=== PATIENT | female | born 1985 | race Caucasian/White ===

== ENCOUNTER 2016-07-14 05:35 | Inpatient (IN) | payer OTHER ==
--- NOTE | 2016-07-09 10:40 | CONS ---
DATE OF ADMISSION: 07/14/2016 DATE OF CONSULTATION: PREOP EVAL Dear Dr. Li: Thank you very much for allowing me to evaluate this 30-year-old female who is to undergo low back s urgery on 07/14. HISTORICAL EVENTS: As you well know, it was in mid November of 2015 that while lifting some luggage at [employer], "jerked her back" and subsequent to this had low back pain and radicular leg pain, right more th an left. Because of conservative therapy that did not allow improvement including epidural and phys ical therapy, she elected to proceed with surgery. Today, she denies cough, wheezing, shortness of breath, nausea, vomiting, abdominal or chest pain. She did have a history of 2 urinary tract infect ions in November, but this has not recurred and is presently asymptomatic. MEDICATIONS: Include: 1. [place] 325/10 every 6 hours p.r.n. 2. Ibuprofen 600 mg every 6 hours p.r.n. PAST MEDICAL HISTORY: Includes: 1. Appendectomy. 2. History of borderline diabetes. ALLERGIES: NONE. FAMILY HISTORY: Positive for diabetes and elevated cholesterol. 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 PHYSICAL EXAMINATION: GENERAL: [place] female in no acute distress. VITAL SIGNS: BP 122/72, respirations were 18, heart rate 72. EYES: Extraocular muscles were full. NOSE, MOUTH, AND THROAT: Normal. NECK: Supple. There was no jugular venous distention, thyroid enlargement or adenopathy. Carotids 2+, no bruits. LUNGS: Clear. HEART: Rhythm was regular, no murmur. No 3rd or 4th sound. ABDOMEN: Nontender. Liver and spleen were not palpable. No masses or tenderness were noted. EXTREMITIES: No edema. Calves nontender. Pulses 2+. IMPRESSION: Pending labs, I perceive no problems with your planned surgical intervention. Labs karen l be reviewed preop and I will follow post. Dictated By: NICHO ROACH MD MR/NTS Conf#: [id number] DID#: [id number]
[~2016-07-14] VITALS: Ht 160 cm; Wt 70.0 kg
[2016-07-14] VITALS (23 sets, daily range): BP systolic 94–117; BP diastolic 55–73; PULSE 60–83; RESP 10–24; Ht 160 cm; Wt 70.0 kg
[~2016-07-14 05:35] MED LIST: CYCL-319 PO
[2016-07-14] MEDS ORDERED: BUPIVACAINE 0.25%/EPI (SDV) 30 ML INJ ONE (06:55)
[2016-07-14] MEDS ORDERED: SURGIFOAM POWDER 1 GM KIT ONE (06:55)
[2016-07-14] MEDS ORDERED: GELATIN SIZE 100 SPONGE ONE (06:55)
[2016-07-14] MEDS ORDERED: THROMBIN 5000 UNIT VIAL ONE (06:56)
[2016-07-14] MEDS ORDERED: CA CHLORIDE 10% 10 ML SYRINGE ONE (06:56)
[2016-07-14] MEDS ORDERED: ONDANSETRON 4 MG INJ IV PRN ×2 (07:00→08:30)
[2016-07-14] MEDS ORDERED: AL HYDROX/MG HYDROX/SIMETH 30 ML CUP PO PRN (07:00)
[2016-07-14] MEDS ORDERED: LACTATED RINGER'S 1,000 ML IV* SCH (07:00)
[2016-07-14] MEDS ORDERED: DIPHENHYDRAMINE 50 MG INJ IV PRN (07:00)
[2016-07-14] MEDS ORDERED: DIPHENHYDRAMINE 25 MG CAP PO PRN (07:00)
[2016-07-14] MEDS ORDERED: HYDROCODONE/APAP (10/325) TAB PO PRN (07:00)
[2016-07-14] MEDS: CEFAZOLIN 1 GM/50 ML (PMX) 50 ML IVPB SCH ×3 (07:00→22:34)
[2016-07-14] MEDS ORDERED: CEFAZOLIN 2 GM/50 ML (PMX) 50 ML IVPB SCH (07:00)
[2016-07-14] MEDS ORDERED: HYDROmorphONE 1 MG/ML SYG IV PRN (07:00)
[2016-07-14] MEDS ORDERED: ACETAMINOPHEN 325 MG TAB PO PRN (07:00)
[2016-07-14] MEDS ORDERED: BISACODYL 10 MG SUPP PR PRN (07:00)
[2016-07-14] MEDS ORDERED: NALOXONE (0.4 MG/ML) INJ IV PRN (07:00)
[2016-07-14] MEDS ORDERED: PROPOFOL 200 MG INJ ONE (07:00)
[2016-07-14] MEDS ORDERED: MIDAZOLAM 1 MG/ML 2 ML INJ ONE (07:01)
[2016-07-14] MEDS ORDERED: PROPOFOL 20 ML ONE (07:01)
[2016-07-14] MEDS ORDERED: ROCURONIUM 50 MG INJ ONE (07:01)
[2016-07-14] MEDS ORDERED: POLYMYXIN/BACITRACIN 1L IRRIG ONE (07:01)
[2016-07-14] MEDS ORDERED: SUCCINYLCHOLINE CHLORIDE 100 MG/5 ML SYG IV ONE (07:01)
[2016-07-14] MEDS ORDERED: CEFAZOLIN 1 GM INJ ONE (07:11)
[2016-07-14] MEDS ORDERED: PHENYLephrine (100 MCG/ML) 5ML SYG ONE (07:30)
[2016-07-14] MEDS ORDERED: DEXAMETHASONE 4 MG/ML 1 ML INJ ONE (08:05)
[2016-07-14] MEDS ORDERED: FAMOTIDINE 20 MG INJ ONE (08:05)
[2016-07-14] MEDS ORDERED: ONDANSETRON 4 MG INJ ONE (08:05)
[2016-07-14] MEDS ORDERED: GLYCOPYRROLATE 1 MG INJ ONE (08:18)
[2016-07-14] MEDS ORDERED: NEOSTIGMINE 3 MG/3 ML SYRINGE ONE (08:18)
[2016-07-14] MEDS ORDERED: FENTAnyl 50 MCG/ML VIAL ONE (08:20)
[2016-07-14] MEDS ORDERED: HYDROmorphONE (0.2 MG/ML) 10ML SYG IV PRN ×3 (08:30)
[2016-07-14] MEDS ORDERED: MEPERIDINE 25 MG INJ IV PRN (08:30)
[2016-07-14] MEDS ORDERED: HYDR-902 PO (08:42)
[2016-07-14] MEDS ORDERED: EPHEDrine SULFATE 50 MG/5 ML SYG ONE (08:45)
[2016-07-14] MEDS: DOCUSATE SODIUM 100 MG CAP PO SCH ×2 (09:00→20:11)
[2016-07-14] MEDS: HYDROmorphONE 0.2 MG/ML PCA IV SCH ×2 (09:29→21:43)
--- NOTE | 2016-07-14 09:34 | RADRPT ---
PROCEDURE: XR Lumbar Spine one view. CLINICAL INDICATION: Low back pain. Intraoperative. TECHNIQUE: Prone portable cross-table lateral. COMPARISON: No prior studies are available for comparison. FINDINGS: Posterior needle markers are present overlying the lower lumbar spine. IMPRESSION: 1. Intraoperative imaging as described above. RPTAT: QQ .Shad Jones MD, Date Time Electronically viewed and signed by .Shad Jones MD, on 07/14/2016 09:34 .R/
--- NOTE | 2016-07-14 09:35 | RADRPT ---
PROCEDURE: XR Lumbar Spine one view. CLINICAL INDICATION: Low back pain. Intraoperative. TECHNIQUE: Prone portable cross-table lateral. COMPARISON: Prior study done earlier the same day. FINDINGS: For the purposes of this report, the last apparent true disc level is considered to be L5-S1. Based on this, the posterior surgical instrument is present overlying the L5-S1 level. IMPRESSION: 1. Intraoperative imaging as described above. RPTAT: QQ .Shad Jones MD, MD Date Time Electronically viewed and signed by .Shad Jones MD, on 07/14/2016 09:34 .R/
[2016-07-14] MEDS: CEPASTAT LOZENGE MT PRN ×3 (09:51→23:02)
--- NOTE | 2016-07-14 11:54 | OPR ---
DATE OF OPERATION: 07/14/2016 PREOPERATIVE DIAGNOSIS: Right L5-S1 disk herniation with radiculopathy. POSTOPERATIVE DIAGNOSES: Right L5-S1 disk herniation with radiculopathy. OPERATIONS PERFORMED: 1. Right L5-S1 lumbar microdiskectomy. 2. Lateral localizing film x2. 3. Intraoperative neuromonitoring (1 hour). 4. Use of operative microscope. 5. Epidural injection via catheter. PRIMARY SURGEON: Antony Li MD CARD SETTER: YAM[place]X [place] NEED FOR [employer] AX DEVELOPER: During this spinal surgical procedure, my academic assistant was used to retrac t and protect the spinal nerves and dural sac. My academic assistant also employed the suction catheters to evacuate blood from the surgical field to improve visualization of the neural structures. The aura tant was medically necessary to facilitate the completion of the surgery in a safe and expeditious m sami. [facility] regulations, as well as hospital bylaws, preclude the use of non-license d health care personnel, such as operating room technicians, to perform these functions. FINDINGS: Neuromonitoring at the start of the case revealed right L5 amplitude down 40%, right S1 a mplitude down 30%. The patient had disk extrusion at L5-S1 with the free fragments. ESTIMATED BLOOD LOSS: Less than 30 mL. DRAINS: None. SPECIMENS: L5-S1 disk was sent to pathology. COMPLICATIONS OF PROCEDURES: None. ANESTHESIOLOGIST: Kamran Zarate DO TYPE OF ANESTHESIA: General. INDICATIONS FOR PROCEDURE: This is a 30-year-old female with right lumbosacral radiculopathy in the setting of disk herniation. She had failed nonoperative measures; therefore, I recommended proceed ing with the above-mentioned surgery. Preoperatively, we discussed the risks, benefits, and alterna tives. She understood and wished to proceed. DESCRIPTION OF PROCEDURE IN DETAIL: The patient was identified in the preoperative holding area, [facility], taken to the operating room, where she was successfully placed under general a nesthesia. Latex precautions were utilized. Neuromonitoring leads were placed, sequential compress rubi devices were applied. Neuromonitoring was performed by Factor 14. I utilized SSEP, MEP, and EMG for the neuromonitoring for 1 hour. Start time was 7:45 a.m., closure time was 8:45 a.m. The patient was placed on the operating table in prone position. Bony prominences were padded. Daily k was prepped and draped in usual fashion. Spinal needles were placed and lateral localizing film w as obtained to confirm the correct levels. I next injected the skin, subcutaneous tissue, and sylwia zion musculature with 0.25% Marcaine and epinephrine. Incision was made over the L5-S1 level. Inc ision was taken down to dorsal fascia, which was incised with Bovie cautery. I then subperiosteally dissected the right L5 lamina. Citlali retractor was placed. Kerr[place] was placed in what was felt to be the L5 lamina and repeat lateral films obtained to confirm the correct levels. Once this was confirmed, microscope was brought in. A minimal hemilaminotomy was performed. Ligamentum flavum wa s then sharply dissected. I identified the S1 nerve root which my academic assistant retracted medially. I identified the annulus and made an annulotomy followed by limited microdiskectomy removing extruded fragments. Once this was done, all nerve signals returned to normal. I irrigated the wound and the disk space. Hemostasis was achieved with bipolar cautery and Surgifoam. Valsalva maneuver was per formed and there was no leak of CSF. Via an epidural catheter, I injected 100 mcg of fentanyl. Ane sthesiologist wilfred peripheral blood, which was spun using the method using the Profit Point device. I t ook the platelet-poor plasma and mixed this with thrombin and injected this over the dura for hemost atic purposes. The retractors were then removed. I closed the deep fascia with a #1 Vicryl stitch. I closed subcutaneous tissue with a 2-0 Vicryl stitch. A 4-0 Monocryl closure was then performed. Dermabond and sterile dressings were then applied. The patient was then awakened from anesthesia and taken to recovery room in stable condition. Lap, sponge, and instrument counts were correct x2. There were no apparent complications during the procedure. The patient will be admitted to the orthopedic simeon for routine postoperative care to include pain c ontrol, neurovascular checks, antibiotics, and physical therapy. Dictated By: ANTONY MILLAN/PEDRO Conf#: [id number] DID#: [id number]
[2016-07-14] MEDS: D5W-0.45 NACL + KCL 20 MEQ 1,000 ML IV SCH ×2 (11:57→16:54)
[2016-07-14] MEDS: CYCLOBENZAPRINE 10 MG TAB PO PRN ×2 (12:01→22:34)
--- NOTE | 2016-07-14 14:13 | CONS ---
DATE OF ADMISSION: 07/14/2016 DATE OF CONSULTATION: 07/14/2016 POSTOPERATIVE MEDICAL CONSULTATIVE NOTE Dear Dr. Li: Thank you very much for allowing me to evaluate this 30-year-old female who just underwent lumbar la minectomy. HISTORICAL EVENTS: As you well know, she did suffer an injury in November of this year, and because of u nrelenting back and related right radicular leg pain, elected to proceed with surgery. Postoperativ paula, on the orthopedic floor, she is comfortable, does note back pain that is moderate without cough , wheezing, shortness of breath, nausea, vomiting, abdominal, or chest pain. MEDICATIONS: Prior to admission: 1. [place] 325/10 every 6 hours p.r.n. 2. Ibuprofen 600 mg q.6h. PAST MEDICAL HISTORY: Includes appendectomy and history of borderline diabetes. FAMILY HISTORY: Positive for elevated cholesterol and diabetes. SOCIAL HISTORY: She is a nonsmoker. 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 She has 1 child. PHYSICAL EXAMINATION: GENERAL: A comfortable-appearing female in no acute distress. VITAL SIGNS: BP 122/80, pulse 70, respirations are 20, she was afebrile. EYES: Extraocular muscles were full. NOSE, MOUTH, AND THROAT: Normal. NECK: Supple. There was no jugular venous distention, thyroid enlargement, or adenopathy. Carotid s 2+. LUNGS: Clear. HEART: Rhythm regular, no murmur. No third or fourth sound. ABDOMEN: Nontender. Liver and spleen were not palpable. No masses or tenderness were noted. EXTREMITIES: No edema, no calf tenderness. IMPRESSION: 1. Stable postop lumbar laminectomy. 2. History of diabetes. Will monitor sugars. 3. Will observe for signs and symptoms of thromboembolic disease daily. Dictated By: NICHO RENO/PEDRO Conf#: [id number] DID#: [id number]
[2016-07-15 00:31] VITALS: BP 108/60; RESP 18
[2016-07-15] MEDS: D5W-0.45 NACL + KCL 20 MEQ 1,000 ML IV SCH ×3 (03:00→22:54)
[2016-07-15] MEDS: CEPASTAT LOZENGE MT PRN (05:02)
[2016-07-15 06:10] LABS: BASOPHILS % 0.3 % (0.0-2.0); EOSINOPHILS # 0.1 10^3/ul (0.0-0.5); EOSINOPHILS % 0.3 % (0.0-7.0); HEMATOCRIT 33.9 % (37.0-47.0); HEMOGLOBIN 11.4 g/dl (12.0-16.0); LYMPHOCYTES # 2.7 10^3/ul (0.8-2.9); MEAN CORPUSCULAR HEMOGLOBIN 30.1 pg (29.0-33.0); MEAN CORPUSCULAR HGB CONC 33.7 g/dl (32.0-37.0); MEAN CORPUSCULAR VOLUME 89.1 fl (82.0-101.0); MEAN PLATELET VOLUME 9.2 fl (7.4-10.4); MONOCYTE # 1.5 10^3/ul (0.3-0.9); MONOCYTES % 8.8 % (0.0-11.0); NEUTROPHIL # 12.7 10^3/ul (1.6-7.5); NEUTROPHILS % 74.6 % (39.0-77.0); PLATELET COUNT 228 10^3/UL (140-440); RED BLOOD COUNT 3.81 10^6/ul (4.20-5.40); RED CELL DISTRIBUTION WIDTH 13.4 % (11.5-14.5); UNCORRECTED WBC 17.1 10^3/ul (4.8-10.8); WHITE BLOOD COUNT 17.1 10^3/ul (4.8-10.8)
[2016-07-15 06:34] LABS: CONDITION 1
[2016-07-15 07:10] VITALS: BP 120/57; RESP 18
[2016-07-15 07:37] LABS: POTASSIUM 3.5 mmol/L (3.5-5.1)
[2016-07-15 07:40] LABS: CREATININE 0.53 mg/dl (0.44-1.00)
[2016-07-15 07:41] LABS: CALCIUM 8.8 mg/dl (8.4-10.2); MAGNESIUM 1.6 mg/dl (1.7-2.5); PHOSPHORUS 4.5 mg/dl (2.5-4.9)
--- NOTE | 2016-07-15 08:55 | CONS ---
Date/Time of Note Date/Time of Note DATE: 07/15/16 TIME: 08:52 Assessment/Plan Assessment/Plan Additional Assessment/Plan 1. S/P lumbar back surgery with inc right leg pain, will ck nivvs and await ortho follow up. 2. Voiding difficulty, will check post void bladder residual 3. Elev WBC prob sec to decadron, will ck u.a and cult Consultation Date/Type/Reason Admit Date/Time Initial Consult Date Detailed Summary Respiratory: No shortness of breath Cardiovascular: No chest pain, No lightheadedness Gastrointestinal: no complaints Genitourinary: other (urine flow is slow), No dysuria Musculoskeletal: back pain (moderte and right leg pain, inc from admit) Exam/Review of Systems Vital Signs Vitals Vital Signs Date Time Temp Pulse Resp B/P Pulse Ox O2 Delivery O2 Flow Rate FiO2 07/15/16 07:10 97.6 84 18 120/57 96 07/14/16 20:34 Room Air 07/14/16 13:41 1.0 Intake and Output 07/14/16 07/14/16 07/15/16 15:00 23:00 07:00 Intake Total 1000 ml 1450 ml 1900 ml Output Total 510 ml 700 ml 1700 ml Balance 490 ml 750 ml 200 ml Exam Neck: No jvd Respiratory: clear to auscultation Cardiovascular: regular rate and rhythm Gastrointestinal: soft Extremities: No edema (and equiv right calf tend, no edema) Results Result Diagram: 07/15/16 0430 07/15/16 0430 Results 24 hrs Laboratory Tests Test 07/15/16 04:30 Anion Gap 18 H Basophils # 0.0 Basophils % 0.3 Blood Urea Nitrogen 10 Calcium Level 8.8 Carbon Dioxide Level 25 Chloride Level 103 Creatinine 0.53 Eosinophils # 0.1 Eosinophils % 0.3 Glucose Level 100 Hematocrit 33.9 L Hemoglobin 11.4 L Lymphocytes # 2.7 Lymphocytes % 16.0 Magnesium Level 1.6 L Mean Corpuscular Hemoglobin 30.1 Mean Corpuscular Hemoglobin Concent 33.7 Mean Corpuscular Volume 89.1 Mean Platelet Volume 9.2 Monocytes # 1.5 H Monocytes % 8.8 Neutrophils # 12.7 H Neutrophils % 74.6 Nucleated Red Blood Cells # 0.0 Nucleated Red Blood Cells % 0.0 Phosphorus Level 4.5 Platelet Count 228 Potassium Level 3.5 Red Blood Count 3.81 L Red Cell Distribution Width 13.4 Sodium Level 142 White Blood Count 17.1 H Medications Medications Current Medications Lactated Ringer's 1,000 ml @ 20 mls/hr Q24H IV* ; Start 07/14/16 at 07:00; Stop 07/16/16 at 08:59 Potassium Chloride/Dextrose/ Sod Cl (D5-1/2ns + KCl 20 Meq) 1,000 ml @ 100 mls/ hr Q10H IV Last administered on 07/15/16 03:00; Admin Dose 100 MLS/HR; Start at 06:54 Acetaminophen/ Hydrocodone Bitart ([place] (10/325)) 1 tab Q4H PRN PO PAIN LEVEL 1-5; Start 07/14/16 at 07:00 Acetaminophen/ Hydrocodone Bitart ([place] (10/325)) 2 tab Q4H PRN PO PAIN LEVEL 6-10; Start 07/14/16 at 07:00 Hydromorphone HCl (Dilaudid) 0.2 mg Q1H PRN IV BREAKTHROUGH PAIN; Start at 07:00 Ondansetron HCl (Zofran Inj) 4 mg Q6H PRN IV NAUSEA AND/OR VOMITING Last administered on 07/14/16 09:34; Admin Dose 4 MG; Start 07/14/16 at 07:00 Bisacodyl (Dulcolax Supp) 10 mg DAILY PRN [place] CONSTIPATION; Start 07/14/16 at 07: 00 Docusate Sodium (Colace) 100 mg BID PO Last administered on 07/14/16 20:11; Admin Dose 100 MG; Start 07/14/16 at 09:00 Al Hydrox/Mg Hydrox/Simethicone (Mag-Al Plus) 15 ml Q6H PRN PO CONSTIPATION/ DYSPEPSIA; Start 07/14/16 at 07:00 Acetaminophen (Tylenol Tab) 650 mg Q4H PRN PO BRODERICK OR TEMP GREATER THAN 101.3F; Start 07/14/16 at 07:00 Cyclobenzaprine HCl (Flexeril) 10 mg TID PRN PO MUSCLE SPASMS Last administered on 07/14/16 22:34; Admin Dose 10 MG; Start 07/14/16 at 07:00 Phenol (Cepastat Lozenge) 1 lozenge PRN PRN [place] SORE THROAT Last administered on 07/15/16 05:02; Admin Dose 1 LOZENGE; Start 07/14/16 at 07:00 Diphenhydramine HCl (Benadryl) 25 mg Q6H PRN PO ITCHING; Start 07/14/16 at 07:00 Diphenhydramine HCl (Benadryl) 25 mg Q6H PRN IV ITCHING; Start 07/14/16 at 07:00 Naloxone HCl (Narcan) 0.2 mg Q2M PRN IV RR 8 BREATHS/MIN OR LESS; Start at 07:00 Hydromorphone HCl (Dilaudid ADMINISTRATIVE COORDINATOR) ADMINISTRATIVE COORDINATOR to be started in PACU Q4PCA IV Last administered on 07/14/16 21:43; Admin Dose 6 MG; Start 07/14/16 at 07:00 Miscellaneous Information 1. Hold ADMINISTRATIVE COORDINATOR at 1,000... ADMINISTRATIVE COORDINATOR IV ; Start 07/14/16 at 07: 00 NICHO ROACH MD Jul 15, 2016 08:55
[2016-07-15 09:00] VITALS: BP 107/63; PULSE 81; RESP 18
[2016-07-15] MEDS: DOCUSATE SODIUM 100 MG CAP PO SCH ×2 (09:04→21:06)
--- NOTE | 2016-07-15 09:44 | RADRPT ---
PROCEDURE: US Lower extremity Venous. CLINICAL INDICATION: Right leg pain TECHNIQUE: Multiple sonographic images of the right lower extremity deep venous system was obtaine d utilizing grayscale, color-flow, compressive sonography and doppler imaging with augmentation. Th e images were reviewed on a PACS workstation. COMPARISON: None. FINDINGS: There is normal compressibility and flow within the right common femoral, superficial femoral, poste rior tibial, peroneal and popliteal veins. RPTAT: AA IMPRESSION: No sonographic evidence for deep venous thrombosis. .Bc Rivera MD, MD Date Time Electronically viewed and signed by .Bc Rivera MD, on 07/15/2016 09:44 .S/
[2016-07-15] MEDS: CYCLOBENZAPRINE 10 MG TAB PO PRN ×2 (10:11→16:03)
[2016-07-15] MEDS ORDERED: KETOROLAC 30 MG INJ IV STA (10:23)
[2016-07-15] MEDS ORDERED: MAGNESIUM SULFATE 3 GM in SOD CHLORIDE 0.9% 100 ML IVPB ONE (11:00)
[2016-07-15] MEDS: HYDROmorphONE 0.2 MG/ML PCA IV SCH (11:49)
[2016-07-15 13:00] VITALS: BP 110/60; PULSE 81; RESP 18
[2016-07-15 17:00] VITALS: BP 120/61; PULSE 81; RESP 18
--- NOTE | 2016-07-15 19:33 | RADRPT ---
PROCEDURE: XR Chest. CLINICAL INDICATION: Fever. TECHNIQUE: Single frontal view of the chest was obtained COMPARISON: None FINDINGS: Portable technique accentuates cardiac silhouette. Mild pulmonary vascular crowding on this portabl e film. The lungs are otherwise substantially clear. There is no pleural effusion or pneumothorax. IMPRESSION: No acute disease. RPTAT: UU Physician Oly Date Time Electronically viewed and signed by Physician Oly on 07/15/2016 19:33 RS/
[2016-07-15] MEDS: HYDROCODONE/APAP (10/325) TAB PO PRN (19:34)
[2016-07-15 20:45] VITALS: BP 100/53; PULSE 88; RESP 19
[2016-07-16 05:26] LABS: BASOPHILS % 0.3 % (0.0-2.0); EOSINOPHILS # 0.1 10^3/ul (0.0-0.5); HEMATOCRIT 36.2 % (37.0-47.0); HEMOGLOBIN 12.2 g/dl (12.0-16.0); LYMPHOCYTES # 2.4 10^3/ul (0.8-2.9); LYMPHOCYTES % 17.8 % (15.0-51.0); MEAN CORPUSCULAR HEMOGLOBIN 30.3 pg (29.0-33.0); MEAN CORPUSCULAR HGB CONC 33.6 g/dl (32.0-37.0); MEAN PLATELET VOLUME 8.7 fl (7.4-10.4); MONOCYTE # 1.4 10^3/ul (0.3-0.9); MONOCYTES % 10.5 % (0.0-11.0); NEUTROPHIL # 9.6 10^3/ul (1.6-7.5); NEUTROPHILS % 70.4 % (39.0-77.0); PLATELET COUNT 223 10^3/UL (140-440); RED BLOOD COUNT 4.02 10^6/ul (4.20-5.40); UNCORRECTED WBC 13.6 10^3/ul (4.8-10.8); WHITE BLOOD COUNT 13.6 10^3/ul (4.8-10.8)
[2016-07-16 05:30] LABS: POTASSIUM 4.1 mmol/L (3.5-5.1)
[2016-07-16 05:45] LABS: CREATININE 0.55 mg/dl (0.44-1.00)
[2016-07-16 05:46] LABS: CALCIUM 8.7 mg/dl (8.4-10.2); MAGNESIUM 2.1 mg/dl (1.7-2.5); PHOSPHORUS 4.3 mg/dl (2.5-4.9)
[2016-07-16 05:47] LABS: CONDITION 1
[2016-07-16] MEDS: HYDROCODONE/APAP (10/325) TAB PO PRN ×3 (06:30→18:04)
[2016-07-16] MEDS: CYCLOBENZAPRINE 10 MG TAB PO PRN ×3 (07:01→21:24)
[2016-07-16 07:39] VITALS: BP 92/54; RESP 16
[2016-07-16] MEDS: DOCUSATE SODIUM 100 MG CAP PO SCH ×2 (08:48→19:53)
[2016-07-16] MEDS: D5W-0.45 NACL + KCL 20 MEQ 1,000 ML IV SCH ×2 (08:54→17:03)
--- NOTE | 2016-07-16 11:41 | CONS ---
Date/Time of Note Date/Time of Note DATE: 07/16/16 TIME: 11:38 Assessment/Plan Assessment/Plan Additional Assessment/Plan 1. Post op lumbar laminectomy with radic right leg pain, niivs was neg, await ortho follow up 2. Temp last night, resolved, cxr was neg, will obtain urine cult, wbc is better today Consultation Date/Type/Reason Admit Date/Time Jul 15, 2016 at 10:23 Detailed Summary Respiratory: No cough, No shortness of breath Cardiovascular: No chest pain Gastrointestinal: no complaints Genitourinary: other, No dysuria, No flank pain Musculoskeletal: back pain (is moderate and c/o right leg radic pain) Exam/Review of Systems Vital Signs Vitals Vital Signs Date Time Temp Pulse Resp B/P Pulse Ox O2 Delivery O2 Flow Rate FiO2 07/16/16 07:39 98.8 16 16 92/54 100 07/15/16 20:45 Room Air 07/14/16 13:41 1.0 Intake and Output 07/15/16 07/15/16 07/16/16 15:00 23:00 07:00 Intake Total 1306 ml 400 ml Output Total 1300 ml 450 ml Balance 6 ml -50 ml Exam Neck: No jvd Respiratory: clear to auscultation Cardiovascular: regular rate and rhythm Gastrointestinal: soft Extremities: No edema (and no calf tend bilat) Results Result Diagram: 07/16/16 0450 07/16/16 0450 Results 24 hrs Laboratory Tests Test 07/16/16 04:50 Anion Gap 17 H Basophils # 0.0 Basophils % 0.3 Blood Urea Nitrogen 11 Calcium Level 8.7 Carbon Dioxide Level 24 Chloride Level 105 Creatinine 0.55 Eosinophils # 0.1 Eosinophils % 1.0 Glucose Level 99 Hematocrit 36.2 L Hemoglobin 12.2 Lymphocytes # 2.4 Lymphocytes % 17.8 Magnesium Level 2.1 Mean Corpuscular Hemoglobin 30.3 Mean Corpuscular Hemoglobin Concent 33.6 Mean Corpuscular Volume 90.0 Mean Platelet Volume 8.7 Monocytes # 1.4 H Monocytes % 10.5 Neutrophils # 9.6 H Neutrophils % 70.4 Nucleated Red Blood Cells # 0.0 Nucleated Red Blood Cells % 0.0 Phosphorus Level 4.3 Platelet Count 223 Potassium Level 4.1 Red Blood Count 4.02 L Red Cell Distribution Width 14.0 Sodium Level 142 White Blood Count 13.6 #H Medications Medications Current Medications Potassium Chloride/Dextrose/ Sod Cl (D5-1/2ns + KCl 20 Meq) 1,000 ml @ 100 mls/ hr Q10H IV Last administered on 07/15/16 03:00; Admin Dose 100 MLS/HR; Start at 06:54 Acetaminophen/ Hydrocodone Bitart ([place] (10325)) 1 tab Q4H PRN PO PAIN LEVEL 1-5; Start 07/14/16 at 07:00 Acetaminophen/ Hydrocodone Bitart ([place] (10/325)) 2 tab Q4H PRN PO PAIN LEVEL 6-10 Last administered on 07/16/16 10:52; Admin Dose 2 TAB; Start 07/14/16 at 07: 00 Hydromorphone HCl (Dilaudid) 0.2 mg Q1H PRN IV BREAKTHROUGH PAIN Last administered on 07/15/16 11:14; Admin Dose 0.2 MG; Start 07/14/16 at 07:00 Ondansetron HCl (Zofran Inj) 4 mg Q6H PRN IV NAUSEA AND/OR VOMITING Last administered on 07/14/16 09:34; Admin Dose 4 MG; Start 07/14/16 at 07:00 Bisacodyl (Dulcolax Supp) 10 mg DAILY PRN [place] CONSTIPATION; Start 07/14/16 at 07: 00 Docusate Sodium (Colace) 100 mg BID PO Last administered on 07/16/16 08:48; Admin Dose 100 MG; Start 07/14/16 at 09:00 Al Hydrox/Mg Hydrox/Simethicone (Mag-Al Plus) 15 ml Q6H PRN PO CONSTIPATION/ DYSPEPSIA; Start 07/14/16 at 07:00 Acetaminophen (Tylenol Tab) 650 mg Q4H PRN PO BRODERICK OR TEMP GREATER THAN 101.3F Last administered on 07/15/16 18:11; Admin Dose 650 MG; Start 07/14/16 at 07:00 Cyclobenzaprine HCl (Flexeril) 10 mg TID PRN PO MUSCLE SPASMS Last administered on 07/16/16 07:01; Admin Dose 10 MG; Start 07/14/16 at 07:00 Phenol (Cepastat Lozenge) 1 lozenge PRN PRN [place] SORE THROAT Last administered on 07/15/16 05:02; Admin Dose 1 LOZENGE; Start 07/14/16 at 07:00 Diphenhydramine HCl (Benadryl) 25 mg Q6H PRN PO ITCHING; Start 07/14/16 at 07:00 Diphenhydramine HCl (Benadryl) 25 mg Q6H PRN IV ITCHING; Start 07/14/16 at 07:00 Naloxone HCl (Narcan) 0.2 mg Q2M PRN IV RR 8 BREATHS/MIN OR LESS; Start at 07:00 Hydromorphone HCl (Dilaudid PLATEN BUILDER UP) PLATEN BUILDER UP to be started in PACU Q4PCA IV Last administered on 07/15/16 11:49; Admin Dose 6 MG; Start 07/14/16 at 07:00 Miscellaneous Information 1. Hold PLATEN BUILDER UP at 1,000... PLATEN BUILDER UP IV ; Start 07/14/16 at 07: 00 NICHO ROACH MD Jul 16, 2016 11:41
[2016-07-16] MEDS ORDERED: DEXAMETHASONE 10 MG/ML 1 ML INJ IV ONE (13:30)
[2016-07-16 19:15] VITALS: BP 113/55; RESP 18
[2016-07-16 20:53] LABS: ADD UMIC YES; URINE BILIRUBIN (Dip) NEGATIVE (NEGATIVE); URINE BLOOD (Dip) TRACE (NEGATIVE); URINE COLOR LT. YELLOW (YELLOW); URINE GLUCOSE (Dip) NEGATIVE (NEGATIVE); URINE KETONES (Dip) NEGATIVE (NEGATIVE); URINE LEUKOCYTE ESTERASE (Dip) NEGATIVE (NEGATIVE); URINE NITRITE (Dip) NEGATIVE (NEGATIVE); URINE TOTAL PROTEIN (Dip) NEGATIVE (NEGATIVE); URINE UROBILINOGEN (Dip) 0.2 E.U./dL (0.1-1.0)
[2016-07-16 21:06] LABS: BACTERIA,URINE RARE; SQUAMOUS EPITHELIAL CELL,UR MODERATE; URINE RBCS 0-2 /HPF (0)
[2016-07-17] MEDS: D5W-0.45 NACL + KCL 20 MEQ 1,000 ML IV SCH ×2 (04:54→07:22)
[2016-07-17 05:57] LABS: HEMATOCRIT 35.4 % (37.0-47.0); LYMPHOCYTES # 0.9 10^3/ul (0.8-2.9); MEAN CORPUSCULAR HEMOGLOBIN 30.4 pg (29.0-33.0); MEAN CORPUSCULAR VOLUME 89.5 fl (82.0-101.0); MEAN PLATELET VOLUME 8.9 fl (7.4-10.4); MONOCYTE # 0.6 10^3/ul (0.3-0.9); MONOCYTES % 4.2 % (0.0-11.0); NEUTROPHIL # 13.4 10^3/ul (1.6-7.5); NEUTROPHILS % 89.8 % (39.0-77.0); PLATELET COUNT 247 10^3/UL (140-440); RED BLOOD COUNT 3.96 10^6/ul (4.20-5.40); RED CELL DISTRIBUTION WIDTH 13.7 % (11.5-14.5); UNCORRECTED WBC 14.9 10^3/ul (4.8-10.8); WHITE BLOOD COUNT 14.9 10^3/ul (4.8-10.8)
[2016-07-17 06:00] LABS: CONDITION 1
[2016-07-17] MEDS: CYCLOBENZAPRINE 10 MG TAB PO PRN ×2 (06:00→14:26)
[2016-07-17 06:09] LABS: POTASSIUM 4.3 mmol/L (3.5-5.1)
[2016-07-17 06:12] LABS: CREATININE 0.5 mg/dl (0.44-1.00)
[2016-07-17 06:13] LABS: CALCIUM 9.4 mg/dl (8.4-10.2); MAGNESIUM 1.9 mg/dl (1.7-2.5); PHOSPHORUS 3.7 mg/dl (2.5-4.9)
[2016-07-17] MEDS: HYDROCODONE/APAP (10/325) TAB PO PRN ×4 (08:10→17:31)
--- NOTE | 2016-07-17 08:37 | CONS ---
Date/Time of Note Date/Time of Note DATE: 07/17/16 TIME: 08:35 Assessment/Plan Assessment/Plan Additional Assessment/Plan 1. Doing well post op with now less right leg radic pain. 2. WBC has inc a bit, decadron was given yesterday, u/a was neg 3. Can dc if ok with PT and ortho Consultation Date/Type/Reason Admit Date/Time Jul 15, 2016 at 10:23 Detailed Summary Respiratory: No cough, No shortness of breath Cardiovascular: No chest pain Gastrointestinal: no complaints Genitourinary: no complaints Musculoskeletal: bone/joint pain (right leg pain is better) Exam/Review of Systems Vital Signs Vitals Vital Signs Date Time Temp Pulse Resp B/P Pulse Ox O2 Delivery O2 Flow Rate FiO2 07/16/16 19:15 97.8 89 18 113/55 97 07/15/16 20:45 Room Air 07/14/16 13:41 1.0 Intake and Output 07/16/16 07/16/16 07/17/16 14:59 22:59 06:59 Intake Total 390 ml 1400 ml 600 ml Balance 390 ml 1400 ml 600 ml Exam Neck: No jvd Respiratory: clear to auscultation Cardiovascular: regular rate and rhythm Gastrointestinal: soft Extremities: No edema (and no calf tend) Results Result Diagram: 07/17/1644607/17/16446 Results 24 hrs Laboratory Tests Test 07/16/16 18:44 07/17/16 04:47 Urine Bacteria RARE Urine Bilirubin NEGATIVE Urine Clarity CLEAR Urine Color LT. YELLOW Urine Glucose NEGATIVE Urine Hemoglobin TRACE Urine Ketones NEGATIVE Urine Leukocyte Esterase NEGATIVE Urine Microscopic RBC 0-2 Urine Microscopic WBC 0-2 Urine Nitrite NEGATIVE Urine Specific [place] 1.010 Urine Squamous Epithelial Cells MODERATE Urine Total Protein NEGATIVE Urine Urobilinogen 0.2 E.U./dL Urine pH 7.0 Anion Gap 16 Basophils # 0.0 Basophils % 0.0 Blood Urea Nitrogen 14 Calcium Level 9.4 Carbon Dioxide Level 25 Chloride Level 103 Creatinine 0.50 Eosinophils # 0.0 Eosinophils % 0.0 Glucose Level 136 Hematocrit 35.4 L Hemoglobin 12.0 Lymphocytes # 0.9 Lymphocytes % 6.0 L Magnesium Level 1.9 Mean Corpuscular Hemoglobin 30.4 Mean Corpuscular Hemoglobin Concent 34.0 Mean Corpuscular Volume 89.5 Mean Platelet Volume 8.9 Monocytes # 0.6 Monocytes % 4.2 Neutrophils # 13.4 H Neutrophils % 89.8 H Nucleated Red Blood Cells # 0.0 Nucleated Red Blood Cells % 0.0 Phosphorus Level 3.7 Platelet Count 247 Potassium Level 4.3 Red Blood Count 3.96 L Red Cell Distribution Width 13.7 Sodium Level 140 White Blood Count 14.9 H Medications Medications Current Medications Potassium Chloride/Dextrose/ Sod Cl (D5-1/2ns + KCl 20 Meq) 1,000 ml @ 100 mls/ hr Q10H IV Last administered on 07/15/16 03:00; Admin Dose 100 MLS/HR; Start at 06:54 Acetaminophen/ Hydrocodone Bitart ([place] (10/325)) 1 tab Q4H PRN PO PAIN LEVEL 1-5; Start 07/14/16 at 07:00 Acetaminophen/ Hydrocodone Bitart ([place] (10/325)) 2 tab Q4H PRN PO PAIN LEVEL 6-10 Last administered on 07/17/16 08:10; Admin Dose 2 TAB; Start 07/14/16 at 07: 00 Hydromorphone HCl (Dilaudid) 0.2 mg Q1H PRN IV BREAKTHROUGH PAIN Last administered on 07/15/16 11:14; Admin Dose 0.2 MG; Start 07/14/16 at 07:00 Ondansetron HCl (Zofran Inj) 4 mg Q6H PRN IV NAUSEA AND/OR VOMITING Last administered on 07/14/16 09:34; Admin Dose 4 MG; Start 07/14/16 at 07:00 Bisacodyl (Dulcolax Supp) 10 mg DAILY PRN [place] CONSTIPATION; Start 07/14/16 at 07: 00 Docusate Sodium (Colace) 100 mg BID PO Last administered on 07/16/16 19:53; Admin Dose 100 MG; Start 07/14/16 at 09:00 Al Hydrox/Mg Hydrox/Simethicone (Mag-Al Plus) 15 ml Q6H PRN PO CONSTIPATION/ DYSPEPSIA; Start 07/14/16 at 07:00 Acetaminophen (Tylenol Tab) 650 mg Q4H PRN PO BR[place]ERICK OR TEMP GREATER THAN 101.3F Last administered on 07/15/16 18:11; Admin Dose 650 MG; Start 1/3/17 at 07:00 Cyclobenzaprine HCl (Flexeril) 10 mg TID PRN PO MUSCLE SPASMS Last administered on 07/17/16 06:00; Admin Dose 10 MG; Start 07/14/16 at 07:00 Phenol (Cepastat Lozenge) 1 lozenge PRN PRN [place] SORE THROAT Last administered on 07/15/16 05:02; Admin Dose 1 LOZENGE; Start 07/14/16 at 07:00 Diphenhydramine HCl (Benadryl) 25 mg Q6H PRN PO ITCHING; Start 07/14/16 at 07:00 Diphenhydramine HCl (Benadryl) 25 mg Q6H PRN IV ITCHING; Start 07/14/16 at 07:00 Naloxone HCl (Narcan) 0.2 mg Q2M PRN IV RR 8 BREATHS/MIN OR LESS; Start at 07:00 Hydromorphone HCl (Dilaudid SILO ERECTOR) SILO ERECTOR to be started in PACU Q4PCA IV Last administered on 07/15/16 11:49; Admin Dose 6 MG; Start 07/14/16 at 07:00 Miscellaneous Information 1. Hold SILO ERECTOR at 1,000... SILO ERECTOR IV ; Start 07/14/16 at 07: 00 NICHO ROACH MD Jul 17, 2016 08:37
[2016-07-17] MEDS: DOCUSATE SODIUM 100 MG CAP PO SCH (08:55)
[2016-07-17 09:56] VITALS: BP 128/65; RESP 18
--- NOTE | 2016-07-17 14:18 | DS ---
DATE OF ADMISSION: 07/15/2016 DATE OF DISCHARGE: 07/17/2016 ADMITTING DIAGNOSIS: Disk herniation. DISCHARGE DIAGNOSIS: Disk herniation. PROCEDURE: Patient taken to the operating room on 07/14/2016 underwent lumbar diskectomy. HOSPITAL COURSE: The patient was admitted to the orthopedic simeon after undergoing the above procedu re. On postoperative day 1, she was having severe leg pain and was not deemed stable for discharge. Therefore, she was transitioned from outpatient to inpatient. She was given Toradol. The followi ng day she had some improvement in her leg but pain was still not stable for discharge. She was giv en Decadron. On postoperative day 3, her leg pain had improved and therefore an MRI is not indicate d at this time. She will follow up with the undersigned in 2 weeks and if her pain is not improved, I will consider an MRI of the lumbar spine at that point. Dictated By: KIRSTIN MILLAN/PEDRO Conf#: [id number] DID#: [id number]
== END 2016-07-17 18:00 | disposition home or self-care (01) | DRG 520 ==
LOC: SDS 05:35 → MS1 10:38 → SDS 07-15 10:22 → MS1 07-15 10:23
PROVIDERS: ADMIT Specialist; ATTEND Specialist
PROC: 0SB40ZZ Excision of Lumbosacral Disc, Open Approach (ICD-10-PCS; principal; 2016-07-14 07:00)
DX: M51.17 Intervertebral disc disorders with radiculopathy, lumbosacral region (principal); R50.9 Fever, unspecified; R39.198 Other difficulties with micturition
CPT/HCPCS: 71010; 72020; 80048; 81001; 81003; 83735; 84100; 84703; 85025; 86999; 87040; 87086; 93971; 97116; 97163; 97167; 97530; J0330; J0690; J1100; J1170; J1885; J2175; J2250; J2370; J2405; J2710; J3010; J3475; J3480; J7120

== ENCOUNTER 2017-04-13 18:15 | Emergency (ER) | END 2017-04-13 23:14 | disposition home or self-care (01) | DX: S61.012A Laceration without foreign body of left thumb without damage to nail, initial encounter (principal); W26.0XXA Contact with knife, initial encounter; Y92.9 Unspecified place or not applicable; Z23 Encounter for immunization | CPT/HCPCS: 12002; 73130; 90471; 90715; Z7502; Z7610 ==

== ENCOUNTER 2017-04-17 07:04 | Emergency (ER) | payer OTHER ==
[~2017-04-17] VITALS: Wt 75.0 kg
[~2017-04-17 07:04] MED LIST changes: +HYDR-902 PO; +IBUP-1542 PO
--- NOTE | 2017-04-17 07:36 | ERD ---
ER Documentation Chief Complaint Date/Time DATE: 04/17/17 TIME: 07:34 Chief Complaint left hand wound check HPI 31-year-old female who presents the emergency room with left hand wound check. The patient sustained a laceration to the thenar eminence of the left hand. She is left-hand dominant. This occurred on 13 April. She denies any issues. No drainage or discharge erythema warmth or tenderness. She has not been changing the dressings since the wound. ROS All systems reviewed and are negative except as per history of present illness. Medications Home Meds Active Scripts Ibuprofen* (Motrin*) 600 Mg Tab, 600 MG PO Q6, #30 TAB Prov:PAOLO DE ANDA PA-C 04/13/17 Cyclobenzaprine Hcl* (Cyclobenzaprine Hcl*) 10 Mg Tablet, 5 MG PO TID Y for MUSCLE SPASMS, #30 TAB Prov:PAULTETE DORAN RIGGING SUPERVISOR 12/13/14 Reported Medications Hydrocodone/Acetaminophen ([place] 10-325 Tablet) 1 Each Tablet, 1 EACH PO Q6 Y for PAIN, TAB 07/14/16 Discontinued Scripts Acetaminophen* (Tylophen*) 500 Mg Capsule, 1 CAP PO Q6H Y for PAIN AND OR ELEVATED TEMP, #20 CAP Prov:PAOLO DE ANDA PA-C 04/13/17 Allergies Allergies: Coded Allergies: latex (Verified Allergy, Mild, 07/14/16) PMhx/Soc History of Surgery: Yes (APPENDECTOMY) Anesthesia Reaction: No Hx Neurological Disorder: No Hx Respiratory Disorders: No Hx Cardiac Disorders: No Hx Psychiatric Problems: No Hx Miscellaneous Medical Probl: Yes (radiculopathy) Hx Alcohol Use: No Hx Substance Use: No Hx Tobacco Use: No Smoking Status: Never smoker FmHx Family History: No diabetes Physical Exam Vitals Vital Signs Date Time Temp Pulse Resp B/P Pulse Ox O2 Delivery O2 Flow Rate FiO2 04/17/17 07:08 97.5 70 18 124/79 99 Physical Exam General: Well developed, well nourished, no acute distress Head: Normocephalic, atraumatic. Eyes: EOM intact ENT: Moist mucous membranes Neck: Full ROM Respiratory: No respiratory distress Cardiovascular: Good capillary refil Abdominal: Nondistended : Deferred MSK: Left hand with well healing laceration at the base of the thenar eminence near the webspace on the palmar surface. Sutures are intact, clean, dry, no dehiscence no erythema warmth or tenderness. 5 out of 5 hand grasp strength. Normal thumb abduction adduction and opposition. Good capillary refill. No evidence of ligamentous or tendinous injury. Neurologic: Alert and oriented, moving all extremities, normal speech, steady gait Skin: No rash well-healing laceration Psych: Normal mood Procedures/MDM The patient's wound is extremely well-appearing here in the emergency room. There are no signs or symptoms concerning for complication such as wound dehiscence, wound infection, cellulitis, or deep space infection. I discussed routine wound care as well as scar minimization techniques. The patient is safe for discharge with outpatient primary care follow-up as needed. A clean dressing was applied and the patient was discharged. Suture removal in 7-10 days status post placement. I urged the patient to change dressings twice daily and clean with soap and water. Departure Diagnosis: Primary Impression: Visit for wound check Additional Impression: Laceration of left hand Encounter type: subsequent encounter Foreign body presence: without foreign body Qualified Code: S61.412D - Laceration of left hand without foreign body, subsequent encounter Condition: Stable Patient Instructions: Wound Care Additional Instructions: Call your primary care doctor TOMORROW for an appointment during the next 1 WEEK.Tell the construction secretary that you were referred from this facility.See the doctor sooner or return here if your condition worsens before your appointment time. Suture removal at 7-10 days s/p suture placement. BETTINA KEY MD Apr 17, 2017 07:36
== END 2017-04-17 07:50 | disposition home or self-care (01) ==
LOC: FTE 07:04
DX: Z48.01 Encounter for change or removal of surgical wound dressing (principal)
CPT/HCPCS: 99281

== ENCOUNTER 2017-04-24 23:08 | Emergency (ER) | payer OTHER ==
[~2017-04-24] VITALS: Ht 162.6 cm; Wt 75.5 kg
[2017-04-24 23:12] VITALS: Ht 162.6 cm; Wt 75.5 kg
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
== END 2017-04-25 00:20 | disposition home or self-care (01) ==
LOC: FTE 23:08
DX: Z48.02 Encounter for removal of sutures (principal)
CPT/HCPCS: 99281

== ENCOUNTER 2018-05-06 22:52 | Emergency (ER) | END 2018-05-07 06:48 | disposition home or self-care (01) ==

== ENCOUNTER 2019-01-17 21:25 | Emergency (ER) | payer OTHER ==
[~2019-01-17] VITALS: Ht 162.6 cm; Wt 87.6 kg
[~2019-01-17 21:25] MED LIST changes: +ALBU8.5H8 INH; +BEN25 PO; -CYCL-319 PO; +CYCL10TA7 PO; +EPIN0.3P4 INJ; +HYDR-3980 PO; -HYDR-902 PO; +MED4DP PO; +RANI150T35 PO
[2019-01-17 21:27] VITALS: Ht 162.6 cm; Wt 87.6 kg
[2019-01-17] MEDS ORDERED: KETOROLAC 30 MG INJ IM STA (22:53)
[2019-01-17] MEDS ORDERED: LORAZEPAM 1 MG TAB PO ONE (23:00)
[2019-01-17] MEDS ORDERED: DEXAMETHASONE 10 MG/ML 1 ML INJ IM ONE (23:00)
[2019-01-17] MEDS ORDERED: CYCL10TA7 PO (23:36)
[2019-01-17] MEDS ORDERED: NAPR-985 PO (23:36)
--- NOTE | 2019-01-18 00:15 | ERD ---
ER Documentation Chief Complaint Chief Complaint LOWER BACK PAIN X'S 1 DAY; HX OF BACK SX 2017 HPI 33-year-old female with past medical history of lumbar back pain with discectomy presents with complaints of acute exacerbation of chronic back pain. Pain is localized to the right lower back with radiation down her right leg. Pain is currently rated 8/10 in severity. 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 She tried ibuprofen 400 mg approximately 5 hours prior to arrival for her pain with some relief. She denies any loss of bowel or bladder function. She is able to ambulate without assistance. She denies any fevers, chills, saddle anesthesia, or other symptoms at this time. ROS All systems reviewed and are negative except as per history of present illness. Medications Home Meds Active Scripts Naproxen* (Naprosyn*) 500 Mg Tablet, 500 MG PO BID PRN for PAIN AND/OR INFLAMMATION, #30 TAB Prov:JOSS PRECIADO PA-C 01/17/19 Cyclobenzaprine Hcl* (Cyclobenzaprine Hcl*) 10 Mg Tablet, 10 MG PO TID, #15 TAB Prov:JOSS PRECIADO PA-C 01/17/19 Epinephrine (Epipen 2-[place]) 0.3 Mg/0.3 Ml Pen.injctr, 1 EA INJ ONCE PRN for ALLERGIC REACTION, #1 EA Prov:TODD,MINAL 05/07/18 Diphenhydramine Hcl* (Benadryl*) 25 Mg Cap, 25 MG PO Q6H PRN for ITCHING, #30 CAP Prov:TODD,MINAL 05/07/18 Ranitidine Hcl* (Zantac*) 150 Mg Tablet, 150 MG PO BID, #20 TAB Prov:TODD,MINAL 05/07/18 Albuterol Sulfate* (Proair HFA*) 8.5 Gm Hfa.aer.ad, 2 PUFF INH Q4, #1 INHALER Prov:TODD,MINAL 05/07/18 Methylprednisolone* (Medrol* DOSE PACK) 4 Mg/Dose-Pack Tab.ds.pk, 4 MG PO . DIRECTED, #1 PACKET Prov:TODD,MINAL 05/07/18 Ibuprofen* (Motrin*) 600 Mg Tab, 600 MG PO Q6, #30 TAB Prov:PAOLO DE ANDA PA-C 04/13/17 Cyclobenzaprine Hcl* (Cyclobenzaprine Hcl*) 10 Mg Tablet, 5 MG PO TID PRN for MUSCLE SPASMS, #30 TAB Prov:ANDREEAPAULETTE HeribertoMarielle BLEACHING MACHINE OPERATOR 12/13/14 Reported Medications Hydrocodone/Acetaminophen ([place] 10-325 Tablet) 1 Each Tablet, 1 EACH PO Q6 PRN for PAIN, TAB 07/14/16 Allergies Allergies: Coded Allergies: latex (Verified Allergy, Mild, 07/14/16) shellfish derived (Verified Allergy, Unknown, swelling, 05/07/18) PMhx/Soc History of Surgery: Yes (Appy) Anesthesia Reaction: No Hx Neurological Disorder: No Hx Respiratory Disorders: No Hx Cardiac Disorders: No Hx Psychiatric Problems: No Hx Miscellaneous Medical Probl: Yes (Radiculopathy) Hx Alcohol Use: No Hx Substance Use: No Hx Tobacco Use: No FmHx Family History: No diabetes Physical Exam Vitals Vital Signs Date Temp Pulse Resp B/P (MAP) Pulse Ox O2 O2 Flow FiO2 Time Delivery Rate 01/17/19 97.9 70 18 123/59 99 21:27 (80) Physical Exam Const: No acute distress Head: Atraumatic Eyes: Normal Conjunctiva ENT: Normal External Ears, Nose and Mouth. Neck: Full range of motion. No meningismus. Resp: Clear to auscultation bilaterally Cardio: Regular rate and rhythm, no murmurs Abd: Soft, non tender, non distended. Normal bowel sounds Skin: No petechiae or rashes Back: Tenderness palpation of the paraspinal muscles of the lumbar spine on the right. Positive straight leg raise on the right. Patient has strength and sensation intact to the bilateral lower extremities. Skin: No bruising or rash Compartments: Soft Motor: Normal flexion and extension of bilateral hip/knee/ankle/foot Sensation: Intact to light touch throughout Bones: No midline TTP Ext: No cyanosis, or edema Neur: Awake and alert Psych: Normal Mood and Affect Results 24 hrs Laboratory Tests Test 01/17/19 23:31 POC Beta HCG, Qualitative NEGATIVE Current Medications Medications Dose Sig/Brain Start Time Status Last (Trade) Ordered Route PRN Stop Time Admin Dose Reason Admin Ketorolac 30 mg ONCE STAT 01/17/19 DC 01/17/19 Tromethamine IM 22:53 01/17/19 23:33 (Toradol) 22:55 10 mg ONCE ONCE 01/17/19 DC 01/17/19 Dexamethasone IM 23:00 01/17/19 23:29 (Decadron) 23:01 Lorazepam 1 mg ONCE ONCE 01/17/19 DC 01/17/19 (Ativan) PO 23:00 01/17/19 23:28 23:01 Procedures/MDM 33-year-old female presents to the emergency department with signs and symptoms most consistent with right-sided low back pain with sciatica. Patient is administered Toradol, Decadron, Ativan in the department is significant improvement of her symptoms. She is nontoxic, well-appearing and back examination was within normal limits. Patient's musculoskeletal symptoms have stabilized while they have been evaluated in the department and are appropriate for outpatient work up. No evidence of cauda equina, cord compression, infiltrative, or infectious etiology. No evidence of life-threatening pathology at time of discharge. Pt/family in agreement with discharge plan/diagnosis. Pt/family advised to return immediately with any new or worsening symptoms. Follow-up with primary care physician within the next 1-2 days. Disclaimer: Inadvertent spelling and grammatical errors are likely due to EHR/dictation software use and do not reflect on the overall quality of patient care. Also, please note that the electronic time recorded on this note does not necessarily reflect the actual time of the patient encounter. Departure Diagnosis: Primary Impression: Low back pain with sciatica Condition: Fair Patient Instructions: Back Pain W/ Sciatica Additional Instructions: Call your primary care doctor TOMORROW for an appointment during the next 1-2 days.See the doctor sooner or return here if your condition worsens before your appointment time. JOSS PRECIADO PA-C Jan 18, 2019 00:15
[2019-01-18] MEDS ORDERED: RANI150T35 PO (00:24)
[2019-01-18 00:26] VITALS: BP 121/62; PULSE 77; RESP 16
== END 2019-01-18 00:26 | disposition home or self-care (01) ==
LOC: FTE 21:25
DX: M54.41 Lumbago with sciatica, right side (principal); Z91.040 Latex allergy status
CPT/HCPCS: 81025; 96372; J1100; J1885; Z7502; Z7610